=== PATIENT | female | born 1960 | race Caucasian/White ===

== ENCOUNTER 2017-07-17 17:13 | Emergency (ER) | payer OTHER ==
[~2017-07-17] VITALS: Ht 160 cm; Wt 49.0 kg
[2017-07-17] MEDS ORDERED: NORCO 10/3251 TABLET PO (20:11)
[2017-07-17] MEDS ORDERED: MOTRIN800 MG PO (20:11)
[2017-07-17 20:41] VITALS: BP 120/80
== END 2017-07-17 20:41 | disposition home or self-care (01) ==
LOC: EME 17:13
DX: T54.91XA Toxic effect of unspecified corrosive substance, accidental (unintentional), initial encounter (principal); T26.62XA Corrosion of cornea and conjunctival sac, left eye, initial encounter; Y92.008 Other place in unspecified non-institutional (private) residence as the place of occurrence of the external cause; Y93.H9 Activity, other involving exterior property and land maintenance, building and construction
CPT/HCPCS: 99281; 99284